=== PATIENT | male | born 2000 | race Caucasian/White ===

== ENCOUNTER 2019-06-21 14:08 | Emergency (ER) | payer OTHER ==
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
== END 2019-06-21 15:30 | disposition home or self-care (01) ==
LOC: LL.ED 14:08
DX: S80.02XA Contusion of left knee, initial encounter (principal); S99.912A Unspecified injury of left ankle, initial encounter; Z98.890 Other specified postprocedural states; V86.59XA Driver of other special all-terrain or other off-road motor vehicle injured in nontraffic accident, initial encounter
CPT/HCPCS: 73562-LT; 73610-LT; 99283-25